=== PATIENT | male | born 1940 | race Caucasian/White ===

== ENCOUNTER → 2016-11-24 | Outpatient (CLI) | payer OTHER ==
[~2016-11-24] MED LIST: ASPI325T45 PO; CHOL1TAB46 PO; FRS/40 PO; GLIP5TAB11 PO; LOSA50TA6 PO; MAGN400T6 PO; METF1000 PO; MULT-839 PO; MULTTAB58 PO; PIOG1TAB20 PO; RIVA1TAB4 PO; SIMV20TA2 PO
[2016-11-24 13:09] LABS: BLOOD UREA NITROGEN 25 mg/dl (7-18); BUN/CREATININE RATIO 21.2 (10-20); CALCIUM 8.9 mg/dl (8.5-10.1); CARBON DIOXIDE 27 mmol/L (21-32); CHLORIDE 106 mmol/L (98-107); GLUCOSE 160 mg/dl (70-99); SODIUM 142 mmol/L (136-145)
[2016-11-24 13:14] LABS: CHOLESTEROL 137 mg/dl (0-200); HDL CHOLESTEROL 46 mg/dl; TRIGLYCERIDES 157 mg/dl (0-150); VERY LOW DENSITY LIPOPROT CALC 31 mg/dl
[2016-11-24 13:22] LABS: ESTIMATED AVERAGE GLUCOSE 128 mg/dl; HA1C FLAG Normal (Normal)
== END | disposition home or self-care (01) ==
LOC: C.LABSPEC 12:33
PROVIDERS: ATTEND Internal Medicine
DX: E78.5 Hyperlipidemia, unspecified (principal); E11.9 Type 2 diabetes mellitus without complications; I25.10 Atherosclerotic heart disease of native coronary artery without angina pectoris; I10 Essential (primary) hypertension

== ENCOUNTER → 2017-02-02 | Outpatient (CLI) | payer OTHER ==
[2017-02-02 11:21] LABS: BLOOD UREA NITROGEN 33 mg/dl (7-18); BUN/CREATININE RATIO 27.5 (10-20); CALCIUM 9.1 mg/dl (8.5-10.1); CARBON DIOXIDE 29 mmol/L (21-32); CHLORIDE 109 mmol/L (98-107); GLUCOSE 136 mg/dl (70-99); MAGNESIUM 2.2 mg/dl (1.8-2.4); POTASSIUM 3.8 mmol/L (3.5-5.1); SODIUM 144 mmol/L (136-145)
== END | disposition home or self-care (01) ==
LOC: C.LAB1850 10:05
PROVIDERS: ATTEND Internal Medicine Cardiovascular Disease
DX: E78.5 Hyperlipidemia, unspecified (principal); I10 Essential (primary) hypertension; I25.10 Atherosclerotic heart disease of native coronary artery without angina pectoris; I42.9 Cardiomyopathy, unspecified; E83.42 Hypomagnesemia; I48.92 Unspecified atrial flutter; I50.22 Chronic systolic (congestive) heart failure; I47.2 Ventricular tachycardia

== ENCOUNTER → 2017-03-25 | Outpatient (CLI) | payer OTHER ==
[2017-03-25 12:46] LABS: BASO % 0.4 %; BASO ABS # 0.02 K/uL (0-0.2); COMPLETE YES; EOS % 3.4 %; HEMATOCRIT 39.9 % (42-52); IG% 0.2 %; LYMPH % 22.3 %; LYMPH ABS # 1.13 K/uL (1.2-3.4); MEAN CELL VOLUME 91.9 fL (80-100); MEAN CORPUSCULAR HGB CONC 32.6 g/dl (32-36); MEAN PLATELET VOLUME 10.3 fL (7.4-10.4); MONO % 11.4 %; NEUT % 62.3 %; PLATELET COUNT 141 K/uL (130-400); RED BLOOD COUNT 4.34 M/uL (4.7-6.1); WHITE BLOOD COUNT 5.07 K/uL (4.8-10.8)
[2017-03-25 13:09] LABS: ALT/SGPT 22 U/L (12-78); AST/SGOT 16 U/L (15-37); BLOOD UREA NITROGEN 21 mg/dl (7-18); BUN/CREATININE RATIO 17.7 (10-20); CARBON DIOXIDE 27 mmol/L (21-32); CHLORIDE 106 mmol/L (98-107); CHOLESTEROL 151 mg/dl (0-200); GLUCOSE 156 mg/dl (70-99); POTASSIUM 3.9 mmol/L (3.5-5.1); SODIUM 143 mmol/L (136-145); TRIGLYCERIDES 197 mg/dl (0-150); VERY LOW DENSITY LIPOPROT CALC 39 mg/dl
[2017-03-25 13:13] LABS: ALKALINE PHOSPHATASE 56 U/L (45-117); CHOLESTEROL/HDL RATIO 3.4; ESTIMATED AVERAGE GLUCOSE 128 mg/dl; HA1C FLAG Normal (Normal); HDL CHOLESTEROL 44 mg/dl
== END | disposition home or self-care (01) ==
LOC: C.LABSPEC 12:14
PROVIDERS: ATTEND Internal Medicine
DX: I25.10 Atherosclerotic heart disease of native coronary artery without angina pectoris (principal); E11.65 Type 2 diabetes mellitus with hyperglycemia; E78.5 Hyperlipidemia, unspecified

== ENCOUNTER → 2017-07-13 | Outpatient (CLI) | payer OTHER ==
[2017-07-13 10:46] LABS: HEMATOCRIT 40.5 % (42-52); MEAN CELL VOLUME 91.4 fL (80-100); MEAN CORPUSCULAR HEMOGLOBIN 30.7 pg (25-34); MEAN CORPUSCULAR HGB CONC 33.6 g/dl (32-36); MEAN PLATELET VOLUME 10.3 fL (7.4-10.4); PLATELET COUNT 135 K/uL (130-400); RED BLOOD COUNT 4.43 M/uL (4.7-6.1); WHITE BLOOD COUNT 5.25 K/uL (4.8-10.8)
[2017-07-13 11:05] LABS: ALT/SGPT 21 U/L (12-78); AST/SGOT 15 U/L (15-37); BLOOD UREA NITROGEN 28 mg/dl (7-18); CARBON DIOXIDE 27 mmol/L (21-32); CHLORIDE 108 mmol/L (98-107); GLUCOSE 132 mg/dl (70-99); POTASSIUM 3.9 mmol/L (3.5-5.1); SODIUM 142 mmol/L (136-145)
== END | disposition home or self-care (01) ==
LOC: C.LAB1850 09:07
PROVIDERS: ATTEND Internal Medicine Cardiovascular Disease
DX: I10 Essential (primary) hypertension (principal); I25.10 Atherosclerotic heart disease of native coronary artery without angina pectoris; I42.9 Cardiomyopathy, unspecified; E83.42 Hypomagnesemia; I48.92 Unspecified atrial flutter; I50.22 Chronic systolic (congestive) heart failure; I47.2 Ventricular tachycardia

== ENCOUNTER → 2017-07-28 | Outpatient (CLI) | payer OTHER ==
[2017-07-28 13:06] LABS: BLOOD UREA NITROGEN 19 mg/dl (7-18); BUN/CREATININE RATIO 15.4 (10-20); CARBON DIOXIDE 22 mmol/L (21-32); CHLORIDE 110 mmol/L (98-107); CHOLESTEROL 136 mg/dl (0-200); ESTIMATED AVERAGE GLUCOSE 126 mg/dl; GLUCOSE 130 mg/dl (70-99); HA1C FLAG Normal (Normal); POTASSIUM 3.5 mmol/L (3.5-5.1); SODIUM 143 mmol/L (136-145)
[2017-07-28 13:09] LABS: CHOLESTEROL/HDL RATIO 3.2; HDL CHOLESTEROL 43 mg/dl; TRIGLYCERIDES 120 mg/dl (0-150); VERY LOW DENSITY LIPOPROT CALC 24 mg/dl
== END | disposition home or self-care (01) ==
LOC: C.LABSPEC 12:35
PROVIDERS: ATTEND Internal Medicine
DX: E78.5 Hyperlipidemia, unspecified (principal); E11.9 Type 2 diabetes mellitus without complications; I10 Essential (primary) hypertension; I25.10 Atherosclerotic heart disease of native coronary artery without angina pectoris

== ENCOUNTER → 2017-09-30 | Outpatient (CLI) | payer OTHER | END | disposition home or self-care (01) | LOC: C.LABSPEC 15:34 | PROVIDERS: ATTEND Internal Medicine | DX: Z12.11 Encounter for screening for malignant neoplasm of colon (principal) ==

== ENCOUNTER → 2017-10-05 | Outpatient (CLI) | payer OTHER ==
[2017-10-05 10:04] LABS: ALT/SGPT 24 U/L (12-78); AST/SGOT 15 U/L (15-37); BLOOD UREA NITROGEN 33 mg/dl (7-18); BUN/CREATININE RATIO 25.9 (10-20); CALCIUM 9.3 mg/dl (8.5-10.1); CARBON DIOXIDE 27 mmol/L (21-32); CHLORIDE 106 mmol/L (98-107); CREATININE 1.27 mg/dl (0.60-1.40); GLUCOSE 130 mg/dl (70-99); POTASSIUM 4.2 mmol/L (3.5-5.1); SODIUM 141 mmol/L (136-145)
== END | disposition home or self-care (01) ==
LOC: C.LAB1850 08:30
PROVIDERS: ATTEND Internal Medicine Cardiovascular Disease
DX: E78.5 Hyperlipidemia, unspecified (principal); I25.10 Atherosclerotic heart disease of native coronary artery without angina pectoris; I47.2 Ventricular tachycardia; I50.22 Chronic systolic (congestive) heart failure; I42.9 Cardiomyopathy, unspecified; I11.9 Hypertensive heart disease without heart failure

== ENCOUNTER → 2017-11-26 | Outpatient (CLI) | payer OTHER ==
[2017-11-26 13:30] LABS: BLOOD UREA NITROGEN 26 mg/dl (7-18); CALCIUM 9.5 mg/dl (8.5-10.1); CARBON DIOXIDE 25 mmol/L (21-32); CHOLESTEROL 114 mg/dl (0-200); CREATININE 1.35 mg/dl (0.60-1.40); GLUCOSE 109 mg/dl (70-99); LDL CHOLESTEROL (DIRECT) 63 mg/dl; POTASSIUM 4.2 mmol/L (3.5-5.1); SODIUM 137 mmol/L (136-145)
[2017-11-26 13:44] LABS: HEMOGLOBIN A1C 5.9 % (4.5-5.6)
== END | disposition home or self-care (01) ==
LOC: C.LABSPEC 12:34
PROVIDERS: ATTEND Internal Medicine
DX: E78.5 Hyperlipidemia, unspecified (principal); E11.9 Type 2 diabetes mellitus without complications; I10 Essential (primary) hypertension

== ENCOUNTER 2024-01-18 05:10 | Inpatient (IN) ==
--- NOTE | 2024-01-18 05:36 | Emergency Department Note ---
Impression & Plan Pneumonia, Hypomagnesemia Admit to the [facility] ED Provider Note NAME: KAYLA DONG AGE: 83 SEX: Male INFORMANT: Patient ED PROVIDER(S): Bernie Mc DO CHIEF COMPLAINT: Productive cough x 3 weeks PLAN: Disposition: Admit to the [facility] MEDICAL DECISION MAKING: This is an 83-year-old male patient who presents to the emergency department with a productive cough and fever. Patient states he has a sore throat. He has been up all night coughing so much that his gut hurts. Patient is febrile on exam and is coughing up a yellow/white sputum. Chest x- ray shows evidence of a left-sided pneumonia. Patient was treated with IV Levaquin. Septic protocol was performed. Lactic acid and procalcitonin were normal. Patient's fever was treated with Tylenol. Patient was noted to have a low magnesium and he began to receive IV magnesium replacement. Other laboratory studies revealed no leukocytosis. Troponin was negative. Bio fire testing was negative. The patient was slightly anemic with a hemoglobin of 12.3. BNP was mildly elevated at 303. I discussed the case with the [facility] and they will evaluate for further inpatient care Care/management discussed with: sourcing manager and [facility] Triage Nursing notes: Reviewed and agree with them. Vital Signs: reviewed and remarkable for fever Chronic Medical/Social Conditions affecting care: Previous triple-vessel bypass; pacemaker placement Differential Diagnosis: Pneumonia, sepsis, bronchitis, viral URI Diagnostics, independently interpreted by me: ECG: Ventricular paced rhythm at 73 Cardiac Monitoring: Paced rhythm at 73 Imaging studies: Portable chest x-ray: As per radiology HPI: 83 year old Male arrives for evaluation of productive cough and sore throat. Patient describes having significant cough and upper respiratory symptoms over the past weeks. The patient describes coughing so much at night that he was unable to sleep. He has a sore throat and fever. PAST MEDICAL HISTORY: See Below, PAST SURGICAL HISTORY: See Below, SOCIAL HISTORY: See Below, HOME MEDICATIONS: See list ALLERGIES: Penicillin VITALS: See Below PHYSICAL EXAMINATION: HEENT: Head - normocephalic and atraumatic. Pupils are equal, round, and reactive to light. Extraocular eye muscles are intact, and sclera are anicteric. Nose - moist nasal mucosa without discharge. Mouth - moist buccal mucosa. Oropharynx is nonerythematous and there is no tonsillar exudate or edema noted. Neck: Supple; no JVD or cervical lymphadenopathy Heart: Regular rate and rhythm. There is a normal S1 and S2 with no murmurs, clicks, or gallops appreciated. Lungs: Diminished breath sounds in all lung howard Abdomen: Soft, completely nontender, nondistended, with good bowel sounds. There are no palpable pulsatile masses or hepatosplenomegaly. There is no guarding, rigidity, or rebound noted. Extremities: No evidence of cyanosis, clubbing, or edema. There are easily palpable peripheral pulses. Skin: warm and dry with good turgor and no rashes. ED treatment: panel monitor, oral Tylenol, IV Levaquin IV magnesium Emergency department course: The patient was evaluated in room A-10. A complete history and physical was performed. A septic protocol was performed. An order was placed for continuous cardiac monitoring. Twelve-lead EKG was obtained. Portable chest x-ray was performed. The patient was given a dose of Tylenol. Patient was treated with a dose of IV Levaquin. Patient was noted to have a low magnesium level and was started on IV magnesium replacement. Case was discussed with the [facility] Hospitalist. 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) Obstructive sleep apnea Severe obesity (BMI >= 40) Chronic systolic CHF (congestive heart failure) Cardiomyopathy Dyslipidemia Paroxysmal atrial flutter NSVT (nonsustained ventricular tachycardia) CAD (coronary artery disease) Cardiac pacemaker Second degree atrioventricular block HTN (hypertension) Surgical History History of permanent cardiac pacemaker placement S/P CABG x 3 Family History Mother Breast cancer Brother Diabetes Brother Diabetes Brother Diabetes Father Heart disease Myocardial infarction Aunt Diabetes Son Myocardial infarction Diabetes Denies family history of Ovarian cancer Prostate cancer Colorectal cancer Social History Smoking Status: Former smoker Tobacco Type: Smokeless Tobacco (Dip or Chew) Age Started Using Tobacco: 15; Age Quit Using Tobacco: 21; Second Hand Exposure: No; Do You Dip or Chew Tobacco: Yes; Hx Alcohol Use: Yes Alcohol type: beer Hx Substance Use: No Preferred Language: Filipino Communication Ability: Effective Production Cloth Cutter Required: No Beliefs That Will Affect Care: None marital status: / Current Living Situation: Family Current Living Situation Comment: Home with brother current occupational status: retired Feels Safe at Home: Yes Childhood Exposure to Second-Hand Smoke: Yes Dental Care, Regularly: No Physical Activity Frequency: Does not Exercise Seatbelt Use: always Sunscreen Use: No Assistive Devices: CPAP and Glasses Allergies Allergies Allergy/AdvReac Type Severity Reaction Status Date / Time Penicillins Allergy Intermediate HIVES Verified 12/23/23 08:43 Home Meds Home Medications Medication Instructions Recorded Confirmed cholecalciferol (vitamin D3) 125 5,000 units PO DAILY 08/08/19 01/18/24 mcg (5,000 unit) capsule magnesium oxide 400 mg PO DAILY #30 caps 08/08/19 01/18/24 multivitamin [Multivitamins FC] 1 tab PO DAILY 08/08/19 01/18/24 vitamins A,C,N-jjps-krifop See Rx Instructions .Route .COMPLEX 08/08/19 01/18/24 [Vision Formula (R-[id number])] zinc acetate 50 mg (zinc) capsule 50 mg PO DAILY 12/08/22 01/18/24 (Galzin) mecobalamin (vitamin B12) 1,000 1,000 mcg sublingual DAILY 12/07/23 01/18/24 mcg disintegrating tablet,sublingual Previous Rx's Medication Instructions Recorded apixaban 2.5 mg tablet (Eliquis) 2.5 mg PO BID #180 tabs 05/21/23 furosemide 40 mg tablet 40 mg PO QAM #90 tabs 05/27/23 metformin 500 mg tablet 500 mg PO BID #180 tabs 10/01/23 dulaglutide 1.5 mg/0.5 mL 1.5 mg (0.5 mL) subcut WK #6 mL 10/19/23 subcutaneous pen injector insulin glargine 100 unit/mL (3 10 - 15 unit (0.1 - 0.15 mL) 10/19/23 mL) subcutaneous pen (Lantus subcut BID #15 mL Solostar U-100 Insulin) carvedilol 25 mg tablet See Rx Instructions .Route 10/22/23 .COMPLEX #180 tabs losartan 100 mg tablet See Rx Instructions .Route 10/22/23 .COMPLEX #90 tabs rosuvastatin 20 mg tablet See Rx Instructions .Route 10/22/23 .COMPLEX #90 tabs Results & Data (ED) Vital Signs Vital Signs - 24 hr 01/18/24 05:22 01/18/24 05:22 01/18/24 05:24 Temperature 37.8 C H Temperature Source Oral Pulse Rate 89 67 68 Pulse Rate from SpO2 Sensor 67 Respiratory Rate 13 13 Blood Pressure Blood Pressure Mean Pulse Oximetry 91 91 Oxygen Delivery Method Room Air Sepsis Recent Fever Within 48 Hours Yes Sepsis New/Unexplained Change in Mental Status No Sepsis Action Taken by Nursing Physician Notified 01/18/24 05:30 01/18/24 05:40 01/18/24 05:40 Temperature Temperature Source Pulse Rate 78 70 70 Pulse Rate from SpO2 Sensor 83 69 Respiratory Rate 19 17 17 Blood Pressure 121/49 L Blood Pressure Mean 58 Pulse Oximetry 94 92 92 Oxygen Delivery Method Sepsis Recent Fever Within 48 Hours Sepsis New/Unexplained Change in Mental Status Sepsis Action Taken by Nursing 01/18/24 05:50 01/18/24 05:56 01/18/24 05:56 Temperature Temperature Source Pulse Rate 72 75 75 Pulse Rate from SpO2 Sensor 69 71 Respiratory Rate 24 23 23 Blood Pressure 136/47 L Blood Pressure Mean 77 Pulse Oximetry 92 90 90 Oxygen Delivery Method Sepsis Recent Fever Within 48 Hours Sepsis New/Unexplained Change in Mental Status Sepsis Action Taken by Nursing 01/18/24 06:00 01/18/24 06:00 01/18/24 06:10 Temperature Temperature Source Pulse Rate 74 74 67 Pulse Rate from SpO2 Sensor 74 65 Respiratory Rate 23 23 26 H Blood Pressure 129/53 L Blood Pressure Mean 83 Pulse Oximetry 91 91 91 Oxygen Delivery Method Sepsis Recent Fever Within 48 Hours Sepsis New/Unexplained Change in Mental Status Sepsis Action Taken by Nursing 01/18/24 06:20 01/18/24 06:20 01/18/24 06:30 Temperature Temperature Source Pulse Rate 74 74 74 Pulse Rate from SpO2 Sensor 76 75 Respiratory Rate 17 17 32 H Blood Pressure 112/56 L Blood Pressure Mean 67 Pulse Oximetry 94 94 95 Oxygen Delivery Method Sepsis Recent Fever Within 48 Hours Sepsis New/Unexplained Change in Mental Status Sepsis Action Taken by Nursing 01/18/24 06:30 01/18/24 06:40 01/18/24 06:45 Temperature Temperature Source Pulse Rate 71 71 73 Pulse Rate from SpO2 Sensor 71 71 Respiratory Rate 23 23 27 H Blood Pressure 100/64 Blood Pressure Mean 84 Pulse Oximetry 92 92 90 Oxygen Delivery Method Room Air Sepsis Recent Fever Within 48 Hours Sepsis New/Unexplained Change in Mental Status Sepsis Action Taken by Nursing 01/18/24 06:45 01/18/24 06:50 Temperature Temperature Source Pulse Rate 73 73 Pulse Rate from SpO2 Sensor 73 Respiratory Rate 27 H 24 Blood Pressure 121/63 Blood Pressure Mean 83 Pulse Oximetry 90 90 Oxygen Delivery Method Sepsis Recent Fever Within 48 Hours Sepsis New/Unexplained Change in Mental Status Sepsis Action Taken by Nursing Laboratory Data 01/19/24 05:55 01/19/24 05:55 Lab Results 01/18/24 01/18/24 01/18/24 Range/Units 05:15 05:45 06:18 WBC 5.64 (4.8-10.8) K/ul RBC 4.12 L (4.70-6.10) M/uL Hgb 12.3 L (14.0-18.0) g/dl Hct 36.7 L (42.0-52.0) % MCV 89.1 (80.0-100.0) fL MCH 29.9 (25.0-34.0) pg MCHC 33.5 (32.0-36.0) g/dL RDW Std Deviation 44.8 (36.4-46.3) fL RDW Coeff of Trinity 14.0 (11.5-14.5) % Plt Count 108 L (130-400) K/uL MPV 11.0 (9.4-12.4) fL Immature Gran % (Auto) 0.2 % Neut % (Auto) 80.7 % Lymph % (Auto) 10.6 % [place] % (Auto) 7.4 % Eos % (Auto) 0.9 % Baso % (Auto) 0.2 % Neut # (Auto) 4.55 (1.40-6.50) K/uL Lymph # (Auto) 0.60 L (1.20-3.40) K/uL Marathon # (Auto) 0.42 (0.11-0.59) K/uL Eos # (Auto) 0.05 (0.00-0.50) K/uL Baso # (Auto) 0.01 (0.00-0.20) K/uL Immature Gran # (Auto) 0.01 (0.01-0.20) K/uL Sodium 137 (136-145) mmol/L Potassium 4.0 (3.5-5.1) mmol/L Chloride 104 (98-107) mmol/L Carbon Dioxide 24 (21-32) mmol/L Anion Gap 9 (3-11) BUN 29 H (6-23) mg/dl Creatinine 1.78 H (0.6-1.4) mg/dl Est Cr Clr Drug Dosing Not Reportable Est GFR ( Amer) 40.3 ml/min Est GFR (Non-Af Amer) 34.8 ml/min BUN/Creatinine Ratio 16.3 (10-20) Glucose 130 H (70-99(Fasting)) mg/dl Lactate 1.6 (0.4-2.0) mmol/L Calcium 8.5 L (8.6-10.3) mg/dl Magnesium 1.4 L (1.7-2.4) mg/dl Total Bilirubin 1.1 H (0.2-1.0) mg/dl Direct Bilirubin 0.1 (0-0.2) mg/dl AST 18 (13-39) U/L ALT 15 (7-52) U/L Alkaline Phosphatase 52 (34-104) U/L Troponin I High Sens 17.5 (0-20) pg/ml B-Natriuretic Peptide 303 H (0-100) pg/ml Total Protein 6.8 (6.0-8.3) gm/dl Albumin 3.9 (3.4-5.0) gm/dl Procalcitonin 0.41 (0-0.5) ng/ml Adenovirus (PCR) Not Detected (NotDetected) B. pertussis DNA (PCR) Not Detected (NotDetected) B.parapertussis DNA PCR Not Detected (NotDetected) C. pneumoniae DNA (PCR) Not Detected (NotDetected) Coronavirus OC43 (PCR) Not Detected (NotDetected) Coronavirus HKU1 (PCR) Not Detected (NotDetected) Coronavirus 229E (PCR) Not Detected (NotDetected) SARS-CoV-2 (PCR) Not Detected (NotDetected) Coronavirus NL63 (PCR) Not Detected (NotDetected) Human Metapneumovir PCR Not Detected (NotDetected) Influenza Type A (PCR) Not Detected (NotDetected) Influenza Type B (PCR) Not Detected (NotDetected) M. pneumoniae (PCR) Not Detected (NotDetected) Parainfluenza 1 (PCR) Not Detected (NotDetected) Parainfluenza 2 (PCR) Not Detected (NotDetected) Parainfluenza 3 (PCR) Not Detected (NotDetected) Parainfluenza 4 (PCR) Not Detected (NotDetected) RSV (PCR) Not Detected (NotDetected) Entero/Rhino (PCR) Not Detected (NotDetected) Administered Medications Albuterol (Albut/Ipratrop 3mg/0.5mg Neb 3 Ml Vial) 3 ml NEB Q4R DESIRAE; Protocol Stop: 02/17/24 18:59 Last Admin: 01/19/24 15:36 Dose: 3 ml Documented By: Admin: 01/19/24 11:05 Dose: 3 ml Documented By: Admin: 01/19/24 07:20 Dose: 3 ml Documented By: Admin: 01/19/24 02:59 Dose: 3 ml Documented By: Admin: 01/18/24 22:42 Dose: 3 ml Documented By: Admin: 01/18/24 20:17 Dose: 3 ml Documented By: ADAMR Apixaban (Apixaban 2.5 Mg Tab) 2.5 mg PO BID REPLACED BY [facility] Stop: 02/17/24 20:59 Last Admin: 01/19/24 08:37 Dose: 2.5 mg Documented By: Admin: 01/18/24 20:11 Dose: 2.5 mg Documented By: DIONICIO Carvedilol (Carvedilol 12.5 Mg Tab) 12.5 mg PO BIDM REPLACED BY [facility] Stop: 02/17/24 16:59 Last Admin: 01/19/24 08:21 Dose: Not Given Documented By: Admin: 01/18/24 20:11 Dose: 12.5 mg Documented By: DIONICIO Insulin Aspart (Insulin Aspart Per Unit Charge) 0 units SC ACHS REPLACED BY [facility] Stop: 02/17/24 11:29 Last Admin: 01/19/24 12:58 Dose: 1 units Documented By: AMINTA Co-signed By: KELLY Admin: 01/19/24 08:20 Dose: Not Given Documented By: Admin: 01/18/24 20:41 Dose: Not Given Documented By: DIONICIO Co-signed By: UBALDO Admin: 01/18/24 18:12 Dose: 1 units Documented By: AMINTA Co-signed By: KELLY Admin: 01/18/24 13:06 Dose: 1 units Documented By: CHARMAINE Co-signed By: IQRA Insulin Glargine (Lantus Per Unit Charge) 15 units SQ BID REPLACED BY [facility] Stop: 02/17/24 09:59 Last Admin: 01/19/24 08:36 Dose: 15 units Documented By: AMINTA Co-signed By: [facility] Admin: 01/18/24 20:40 Dose: 15 units Documented By: DIONICIO Co-signed By: UBALDO Admin: 01/18/24 12:17 Dose: 15 units Documented By: CHARMAINE Co-signed By: IQRA Losartan Potassium (Losartan Potassium 50 Mg Tab) 50 mg PO [facility] Stop: 02/18/24 08:59 Last Admin: 01/19/24 08:37 Dose: 50 mg Documented By: AMINTA Rosuvastatin Calcium (Rosuvastatin Calcium 20 Mg Tab) 20 mg PO [facility] Stop: 02/18/24 08:59 Last Admin: 01/19/24 08:36 Dose: 20 mg Documented By: AMINTA Discontinued Medications Acetaminophen (Acetaminophen 500 Mg Tab) 1,000 mg PO NOW STA Stop: 01/18/24 06:44 Last Admin: 01/18/24 06:47 Dose: 1,000 mg Documented By: LEZBIETA Magnesium Sulfate/Dextrose (Magnesium Sulfate / D5w) 1 gm in 100 mls @ 100 mls/hr IV NOW STA Stop: 01/18/24 06:59 Last Infusion: 01/18/24 07:00 Dose: Infused Documented By: Admin: 01/18/24 06:26 Dose: 100 mls/hr Documented By: CESARIO Levofloxacin/Dextrose (Levaquin/D5w) 750 mg in 150 mls @ 100 mls/hr IV NOW STA Stop: 01/18/24 07:33 Last Infusion: 01/18/24 08:21 Dose: Infused Documented By: Admin: 01/18/24 06:26 Dose: 100 mls/hr Documented By: CESARIO Sodium Chloride (Nss) 500 mls @ 999 mls/hr IV .Q31M ONE Stop: 01/18/24 07:13 Last Infusion: 01/18/24 07:14 Dose: Infused Documented By: Admin: 01/18/24 06:47 Dose: 999 mls/hr Documented By: ELZBIETA Magnesium Sulfate/Dextrose (Magnesium Sulfate / D5w) 1 gm in 100 mls @ 50 mls/hr IV Q2H DESIRAE Stop: 01/18/24 15:21 Last Infusion: 01/18/24 18:06 Dose: Infused Documented By: Admin: 01/18/24 15:46 Dose: 50 mls/hr Documented By: Infusion: 01/18/24 14:43 Dose: Infused Documented By: Admin: 01/18/24 12:21 Dose: 50 mls/hr Documented By: Infusion: 01/18/24 11:57 Dose: Infused Documented By: Admin: 01/18/24 09:57 Dose: 50 mls/hr Documented By: JENIFFER Imaging Data Radiologist's Impression: Chest X-Ray 01/18/24 05:22 SINGLE VIEW CHEST CLINICAL HISTORY: Sepsis FINDINGS: An AP, portable, upright chest radiograph is compared to study dated 02/17/2019. The patient is status post midline sternotomy. A 2-lead cardiac pacemaker is unchanged in position. The heart is enlarged noting atherosclerotic calcification of the thoracic aorta. The pulmonary vasculature is noncongested. Airspace consolidation is seen in the left mid to lower lung. There is bibasilar atelectasis. No large pleural effusion or pneumothorax is seen. The fractures are osteopenic. The bony thorax is grossly intact. Arthritic change is noted in the shoulders. IMPRESSION: 1. Cardiomegaly and cardiac pacemaker without radiographic evidence of congestive failure. 2. Airspace consolidation is seen in the left mid to lower lung. Correlate clinically for evidence of pneumonia/aspiration pneumonitis. Radiographic follow-up to resolution is recommended. ACT 112: Negative or not required by law. Electronically signed by: Jose Lyles M.D. 01/18/2024 7:25 AM Discharge Plan Visit Data Chief Complaint: Flu Like Symptoms Stated Complaint: FLU-LIKE SYMPTOMS COUGH, SORE RIBS ED Provider: Bernie Mc Discharge Problem: Pneumonia, Hypomagnesemia Patient Disposition: Admitted As Inpatient Discharge Instructions Interventions: ED Discharge Assessment Last Done: 01/18/24 16:12 Discharge Problem: Pneumonia Qualifiers: Pneumonia type: due to unspecified organism Laterality: left Lung location: l ower lobe of lung Qualified Code(s): J18.9 - Pneumonia, unspecified organism
[2024-01-18 05:44] LABS: Basophils # (auto) 0.01 K/uL (0.00-0.20); Basophils % (auto) 0.2 %; Eosinophils # (auto) 0.05 K/uL (0.00-0.50); Eosinophils % (auto) 0.9 %; Hematocrit (blood only) 36.7 % (42.0-52.0); Hemoglobin 12.3 g/dl (14.0-18.0); Immature Granulocytes # (auto) 0.01 K/uL (0.01-0.20); Immature Granulocytes % (auto) 0.2 %; Lymphocytes % (auto) 10.6 %; Mean Corpuscular Hemoglobin 29.9 pg (25.0-34.0); Mean Corpuscular Hgb Conc 33.5 g/dL (32.0-36.0); Mean Corpuscular Volume 89.1 fL (80.0-100.0); Monocytes # (auto) 0.42 K/uL (0.11-0.59); Monocytes % (auto) 7.4 %; Neutrophils # (auto) 4.55 K/uL (1.40-6.50); Neutrophils % (auto) 80.7 %; Platelet Count 108 K/uL (130-400); RDW Standard Deviation 44.8 fL (36.4-46.3); Red Blood Count 4.12 M/uL (4.70-6.10); White Blood Count 5.64 K/ul (4.8-10.8)
[2024-01-18 05:53] LABS: Alanine Aminotransferase 15 U/L (7-52); Albumin Level 3.9 gm/dl (3.4-5.0); Alkaline Phosphatase 52 U/L (34-104); Anion Gap 9 (3-11); Aspartate Aminotransferase 18 U/L (13-39); BUN Creatinine Ratio 16.3 (10-20); Bilirubin Direct 0.1 mg/dl (0-0.2); Bilirubin,Total 1.1 mg/dl (0.2-1.0); Blood Urea Nitrogen 29 mg/dl (6-23); Calcium 8.5 mg/dl (8.6-10.3); Carbon Dioxide 24 mmol/L (21-32); Chloride 104 mmol/L (98-107); Est GFR (African American) 40.3 ml/min; Est GFR (Non-African American) 34.8 ml/min; Glucose 130 mg/dl (70-99(Fasting)); Magnesium 1.4 mg/dl (1.7-2.4); Sodium 137 mmol/L (136-145); Total Protein 6.8 gm/dl (6.0-8.3)
[2024-01-18 05:59] LABS: Troponin I High Sensitivity 17.5 pg/ml (0-20)
[2024-01-18] MEDS: MAGNESIUM SULFATE / D5W 1 GM/100 ML BAG IV STA (06:26)
[2024-01-18] MEDS: levoFLOXacin/D5W 750 MG/150 ML BAG IV STA (06:26)
[2024-01-18] MEDS: SODIUM CHLORIDE 0.9% 500 ML IV ONE (06:47)
[2024-01-18] MEDS: ACETAMINOPHEN 500 MG TAB PO STA (06:47)
[2024-01-18 07:18] LABS: Adenovirus PCR Not Detected (NotDetected); Bordetella parapertussis PCR Not Detected (NotDetected); Bordetella pertussis PCR Not Detected (NotDetected); Chlamydia pneumoniae PCR Not Detected (NotDetected); Coronavirus 229E PCR Not Detected (NotDetected); Coronavirus CoV-2 (COVID19)PCR Not Detected (NotDetected); Coronavirus HKU1 PCR Not Detected (NotDetected); Coronavirus NL63 PCR Not Detected (NotDetected); Coronavirus OC43PCR Not Detected (NotDetected); Human Metapneumovirus PCR Not Detected (NotDetected); Influenza A PCR Not Detected (NotDetected); Influenza B PCR Not Detected (NotDetected); Mycoplasma pneumoniae PCR Not Detected (NotDetected); Parainfluenza Virus 1 PCR Not Detected (NotDetected); Parainfluenza Virus 2 PCR Not Detected (NotDetected); Parainfluenza Virus 3 PCR Not Detected (NotDetected); Parainfluenza Virus 4 PCR Not Detected (NotDetected); Respiratory Syncytial VirusPCR Not Detected (NotDetected); Rhinovirus/Enterovirus PCR Not Detected (NotDetected)
--- NOTE | 2024-01-18 07:27 | XRay Report ---
SINGLE VIEW CHEST CLINICAL HISTORY: Sepsis FINDINGS: An AP, portable, upright chest radiograph is compared to study dated 02/17/2019. The patient is status post midline sternotomy. A 2-lead cardiac pacemaker is unchanged in position. The heart is enlarged noting atherosclerotic calcification of the thoracic aorta. The pulmonary vasculature is no ncongested. Airspace consolidation is seen in the left mid to lower lung. There is bibasilar atelecta sis. No large pleural effusion or pneumothorax is seen. The fractures are osteopenic. The bony thorax is grossly intact. Arthritic change is noted in the shoulders. IMPRESSION: 1. Cardiomegaly and cardiac pacemaker without radiographic evidence of congestive failure. 2. Airspace consolidation is seen in the left mid to lower lung. Correlate clinically for evidence of pneumonia/aspiration pneumonitis. Radiographic follow-up to resolution is recommended. ACT 112: Negative or not required by law. Electronically signed by: Jose Lyles M.D. 01/18/2024 7:25 AM
[2024-01-18] MEDS ORDERED: ACETAMINOPHEN 325 MG TAB PO PRN (08:14)
[2024-01-18] MEDS ORDERED: ONDANSETRON INJ 2 MG/ML 2 ML VIAL IV PRN (08:14)
--- NOTE | 2024-01-18 09:03 | Electrocardiogram Report ---
Test Reason : Blood Pressure : / mmHG Vent. Rate : 073 BPM Atrial Rate : 062 BPM P-R Int : 000 ms QRS Dur : 170 ms QT Int : 452 ms P-R-T Axes : 000 -75 098 degrees QTc Int : 497 ms Ventricular-paced rhythm with occasional Premature ventricular complexes Abnormal ECG When compared with ECG of 01-MAY-2015 16:01, Premature ventricular complexes are now Present Vent. rate has increased BY 13 BPM Confirmed by Sancho Tinajero ([id number]) on 01/18/2024 9:03:22 AM Referred By: REFERRED SELF Confirmed By:Miky Tinajero
[2024-01-18] MEDS: MAGNESIUM SULFATE / D5W 1 GM/100 ML BAG IV SCH (09:57)
[2024-01-18] MEDS ORDERED: GLUCOSE 40% GEL 15 GM TUBE PO PRN (09:58)
[2024-01-18] MEDS ORDERED: GLUCOSE 10 TAB/TUBE PO PRN (09:58)
[2024-01-18] MEDS ORDERED: GLUCAGON FOR INJ 1 MG VIAL SQ PRN (09:58)
[2024-01-18] MEDS ORDERED: DEXTROSE 50% 50 ML SYRINGE IV PRN (09:58)
[2024-01-18] MEDS ORDERED: CARBOHYDRATES FOR HYPOGLYCEMIA PO PRN (09:58)
--- NOTE | 2024-01-18 10:07 | History & Physical Report ---
Date of Service January 18, 2024 Assessment & Plan (1) Community acquired pneumonia: Plan: Patient presented with productive cough and fever Chest x-ray showed left-sided pneumonia No orthopnea, PND, worsened leg swelling compared to baseline to suggest CHF exacerbation Got IV Levaquin in the emergency room. Will continue as he is starting to feel better in response Ordered sputum cultures Blood cultures pending Not hypoxic Not septic Ordered DuoNebs Monitor for improvement clinically (2) Heart failure with mid-range ejection fraction: Plan: Patient does not have any orthopnea or PND or leg swelling that is worse than usual even though BNP is slightly elevated in the 300s range Patient has a history of cardiomyopathy and systolic CHF with an EF of 40% Continue Lasix 40 mg daily starting tomorrow 01/18 Continue Coreg, losartan Home medications will need to be verified and doses of medications may need to be adjusted accordingly (3) Type 2 diabetes mellitus with obesity: Plan: Continue long-acting insulin 15 units twice daily Ordered sliding scale insulin (4) Stage 3b chronic kidney disease (CKD): Plan: Monitor daily BMP Avoid nephrotoxic medication Creatinine at baseline (5) Obstructive sleep apnea: Plan: Ordered CPAP (6) Chronic systolic CHF (congestive heart failure): Plan: No acute decompensation at this time clinically Got IV fluid in the emergency room Will not hydrate further and watch for volume overload Will resume Lasix 40 mg starting tomorrow. Continue Coreg, losartan, Lasix. Medications and the doses will need to be verified (7) Cardiomyopathy: Plan: Please see problem #6 (8) Dyslipidemia: Plan: Continue rosuvastatin (9) NSVT (nonsustained ventricular tachycardia): Plan: Continue Coreg (10) CAD (coronary artery disease): Plan: Continue Coreg, ARB, statin (11) Atrial fibrillation: Plan: Not an active issue at this time Continue Eliquis and Coreg (12) Hypomagnesemia: Plan: Magnesium level was low at 1.5 Patient had 1 g of magnesium replacement in the emergency room. Ordered a few more replacements Trend Plan CODE STATUS: DNR/DNI DVT prophylaxis: On Eliquis Admission and Anticipated Discharge Date Admission Date: January 18, 2024 History of Present Illness Chief Complaint: Cough over the last few weeks, getting worse over the past 5 days. Fever this morning. Primary Care Provider: Suzi Aragon MD This is an 83-year-old gentleman who presented to the hospital with the above chief complaint. He stated that his symptoms started 2 weeks ago, got better initially but over the last 5 days, his cough got worse. He has been coughing so much that his belly hurts. Last night, he was not able to sleep at all. This morning he felt unwell and weak. He has been coughing up yellow and white sputum. His brother called 911 and brought him to the emergency room. In the ER, he was noted to have a fever. Chest x-ray showed a left-sided pneumonia. He is thus being admitted with a diagnosis of pneumonia. Magnesium was low at 1.4. Bio fire was negative. He was started on Levaquin and was given IV fluid in the emergency room. The patient says that he is starting to feel better overall. Patient denied any orthopnea, PND, leg swelling that is worse than usual. Past medical history 1. 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 Chronic systolic congestive heart failure with an ejection fraction of 40% 3. 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 Paroxysmal atrial fibrillation, on Eliquis 5. Coronary artery disease status post CABG 6. Benign essential hypertension 7. Hyperlipidemia 8. Paroxysmal nonsustained V. tach 9. 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 Insulin-dependent diabetes mellitus type 2, uncontrolled, complicated by diabetic nephropathy 11. Obstructive sleep apnea Allergies Allergy/AdvReac Type Severity Reaction Status Date / Time Penicillins Allergy Intermediate HIVES Verified 12/23/23 08:43 Home Medications Medication Instructions Recorded Confirmed Type cholecalciferol (vitamin D3) 125 5,000 units PO DAILY 08/08/19 01/18/24 History mcg (5,000 unit) capsule magnesium oxide 400 mg PO DAILY #30 caps 08/08/19 01/18/24 History multivitamin [Multivitamins FC] 1 tab PO DAILY 08/08/19 01/18/24 History vitamins A,C,H-lojb-ekpkzf See Rx Instructions .Route .COMPLEX 08/08/19 01/18/24 History [Vision Formula (S-R-S-Zn-prakash)] zinc acetate 50 mg (zinc) capsule 50 mg PO DAILY 12/08/22 01/18/24 History (Galzin) apixaban 2.5 mg tablet (Eliquis) 2.5 mg PO BID #180 tabs 05/21/23 01/18/24 Rx furosemide 40 mg tablet 40 mg PO QAM #90 tabs 05/27/23 01/18/24 Rx metformin 500 mg tablet 500 mg PO BID #180 tabs 10/01/23 01/18/24 Rx dulaglutide 1.5 mg/0.5 mL 1.5 mg (0.5 mL) subcut WK #6 mL 10/19/23 01/18/24 Rx subcutaneous pen injector insulin glargine 100 unit/mL (3 10 - 15 unit (0.1 - 0.15 mL) 10/19/23 01/18/24 Rx mL) subcutaneous pen (Lantus subcut BID #15 mL Solostar U-100 Insulin) carvedilol 25 mg tablet See Rx Instructions .Route 10/22/23 01/18/24 Rx .COMPLEX #180 tabs losartan 100 mg tablet See Rx Instructions .Route 10/22/23 01/18/24 Rx .COMPLEX #90 tabs rosuvastatin 20 mg tablet See Rx Instructions .Route 10/22/23 01/18/24 Rx .COMPLEX #90 tabs mecobalamin (vitamin B12) 1,000 1,000 mcg sublingual DAILY 12/07/23 01/18/24 History mcg disintegrating tablet,sublingual 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) Obstructive sleep apnea Severe obesity (BMI >= 40) Chronic systolic CHF (congestive heart failure) Cardiomyopathy Dyslipidemia Paroxysmal atrial flutter NSVT (nonsustained ventricular tachycardia) CAD (coronary artery disease) Cardiac pacemaker Second degree atrioventricular block HTN (hypertension) Surgical History History of permanent cardiac pacemaker placement S/P CABG x 3 Family History Mother Breast cancer Brother Diabetes Brother Diabetes Brother Diabetes Father Heart disease Myocardial infarction Aunt Diabetes Son Myocardial infarction Diabetes Denies family history of Ovarian cancer Prostate cancer Colorectal cancer Social History Smoking Status: Never smoker Age Started Using Tobacco: 15; Age Quit Using Tobacco: 21; Second Hand Exposure: No; Do You Dip or Chew Tobacco: Yes (Started at age 23); Hx Alcohol Use: Yes (1 beer daily) Alcohol type: beer Hx Substance Use: No Preferred Language: [place] Communication Ability: Effective marital status: / current occupational status: retired Feels Safe at Home: Yes Childhood Exposure to Second-Hand Smoke: Yes Dental Care, Regularly: No Physical Activity Frequency: Does not Exercise Seatbelt Use: always Sunscreen Use: No Review of Systems Review of Systems: All systems reviewed & are unremarkable except as noted in Subjective Physical Exam Physical Exam: General appearance: Awake, conversant, able to answer questions appropriately. AOx3. Pupils: Equally reactive to light and accommodation Neck: No masses, no thyromegaly Respiration: Left lower lung crackles. Normal effort Cardiovascular: S1-S2/regular rate and rhythm. No murmur, rubs or gallop. No edema. Abdomen: Soft, nontender, nondistended. No hepatosplenomegaly Musculoskeletal: No clubbing, no cyanosis, normal range of motion Skin: No rashes, no nodules Neuro exam: Cranial nerves intact, sensation grossly intact Psychiatric: Patient has good judgment and insight. AOx3. Mood and affect appear normal Lymphatics: No cervical or axillary lymphadenopathy noted Results & Data Results & Data Vital Signs (Past 12 Hours) Vital Signs Temp Pulse Resp BP Pulse Ox O2 Del Method 01/18/24 09:13 80 01/18/24 08:00 64 23 115/55 L 92 Room Air 01/18/24 07:45 79 24 129/62 95 Room Air 01/18/24 07:15 68 17 109/63 91 Room Air 01/18/24 07:00 66 21 102/57 L 90 Room Air 01/18/24 06:50 73 24 90 01/18/24 06:45 73 27 H 121/63 90 01/18/24 06:45 73 27 H 90 01/18/24 06:40 71 23 92 01/18/24 06:30 71 23 100/64 92 Room Air 01/18/24 06:30 74 32 H 95 01/18/24 06:20 74 17 112/56 L 94 03/18/24 06:20 74 17 94 01/18/24 06:10 67 26 H 91 01/18/24 06:00 74 23 129/53 L 91 01/18/24 06:00 74 23 91 01/18/24 05:56 75 23 136/47 L 90 01/18/24 05:56 75 23 90 01/18/24 05:50 72 24 92 01/18/24 05:40 70 17 92 01/18/24 05:40 70 17 121/49 L 92 01/18/24 05:30 78 19 94 01/18/24 05:24 68 13 91 01/18/24 05:22 67 01/18/24 05:22 37.8 C H 89 13 91 Room Air Laboratory Results Abnormal lab results 01/18/24 01/18/24 01/18/24 Range/Units 05:15 06:18 12:49 RBC 4.12 L (4.70-6.10) M/uL Hgb 12.3 L (14.0-18.0) g/dl Hct 36.7 L (42.0-52.0) % Plt Count 108 L (130-400) K/uL Lymph # (Auto) 0.60 L (1.20-3.40) K/uL BUN 29 H (6-23) mg/dl Creatinine 1.78 H (0.6-1.4) mg/dl Glucose 130 H (70-99(Fasting)) mg/dl POC Glucose 168 H (70-99) mg/dl Calcium 8.5 L (8.6-10.3) mg/dl Magnesium 1.4 L (1.7-2.4) mg/dl Total Bilirubin 1.1 H (0.2-1.0) mg/dl B-Natriuretic Peptide 303 H (0-100) pg/ml Diagnostic Findings Chest X-Ray 01/18/24 05:22 SINGLE VIEW CHEST CLINICAL HISTORY: Sepsis FINDINGS: An AP, portable, upright chest radiograph is compared to study dated 02/17/2019. The patient is status post midline sternotomy. A 2-lead cardiac pacemaker is unchanged in position. The heart is enlarged noting atherosclerotic calcification of the thoracic aorta. The pulmonary vasculature is noncongested. Airspace consolidation is seen in the left mid to lower lung. There is bibasilar atelectasis. No large pleural effusion or pneumothorax is seen. The fractures are osteopenic. The bony thorax is grossly intact. Arthritic change is noted in the shoulders. IMPRESSION: 1. Cardiomegaly and cardiac pacemaker without radiographic evidence of congestive failure. 2. Airspace consolidation is seen in the left mid to lower lung. Correlate clinically for evidence of pneumonia/aspiration pneumonitis. Radiographic follow-up to resolution is recommended. ACT 112: Negative or not required by law. Electronically signed by: Jose Lyles M.D. 01/18/2024 7:25 AM PG Care Time/CCT Total # of Minutes Spent Total Time Spent with Patient: Total time spent is greater than 50% in coordination of care (as documented) at patient's floor/unit and/or counseling patient: Coding Level of Care Code 69695 INT INP/OBS CARE 255MIN Diagnoses Community acquired pneumonia J18.9 Heart failure with mid-range ejection fraction I50.22 Type 2 diabetes mellitus with obesity E11.69; E66.9 Stage 3b chronic kidney disease (CKD) N18.32 Obstructive sleep apnea G47.33 Chronic systolic CHF (congestive heart failure) I50.22 Cardiomyopathy I42.9 Dyslipidemia E78.5 NSVT (nonsustained ventricular tachycardia) I47.2 Coronary artery disease involving coronary bypass graft of [place] heart without angina pectoris I25.810 Coronary Disease-Associated Artery/Lesion type: bypass graft [place] vs. transplanted heart: [place] heart Associated angina: without angina Paroxysmal atrial fibrillation I48.0 Atrial fibrillation type: paroxysmal Hypomagnesemia E83.42 (10) CAD (coronary artery disease) Coronary Disease-Associated Artery/Lesion type: bypass graft [place] vs. transplanted heart: [place] heart Associated angina: without angina Qualified Code(s): I25.810 - Atherosclerosis of coronary artery bypass graft(s) without angina pectoris (11) Atrial fibrillation Atrial fibrillation type: paroxysmal Qualified Code(s): I48.0 - Paroxysmal atrial fibrillation
[2024-01-18] MEDS: LANTUS PER UNIT CHARGE SQ SCH (12:17)
[2024-01-18] MEDS: INSULIN ASPART PER UNIT CHARGE SC SCH (13:06)
[2024-01-18] MEDS: carvediloL 12.5 MG TAB PO SCH (20:11)
[2024-01-18] MEDS: APIXABAN 2.5 MG TAB PO SCH (20:11)
[2024-01-18] MEDS: ALBUT/IPRATROP 3MG/0.5MG NEB 3 ML VIAL NEB SCH (20:17)
[2024-01-19 03:01] LABS: Appearance Urine Clear (Clear); Bacteria Urine Automated Negative (Negative); Bilirubin Urine Negative (Negative); Blood Urine 1+ (Negative); Color Urine Yellow; Epithelial Cell Urine Auto 20-30 /lpf (0-5); Glucose Urine UA Negative (Negative); Ketones Urine Negative (Negative); Leukocyte Esterase Urine 1+ (Negative); Nitrite Urine Negative (Negative); Protein Urine Negative (Negative); RBC Urine Automated 0-4 /hpf (0-4); Specific Gravity Urine 1.011 (1.000-1.030); Urobilinogen Urine Negative (Negative)
[2024-01-19 06:38] LABS: BUN Creatinine Ratio 15.9 (10-20); Calcium 7.9 mg/dl (8.6-10.3); Creatinine Clr Calc Pharmacy 29.3 ml/min; Est GFR (African American) 29.1 ml/min; Est GFR (Non-African American) 25.1 ml/min; Magnesium 2.3 mg/dl (1.7-2.4); Potassium 3.8 mmol/L (3.5-5.1)
[2024-01-19 06:54] LABS: Hematocrit (blood only) 29.6 % (42.0-52.0); Hemoglobin 9.9 g/dl (14.0-18.0); Mean Corpuscular Hemoglobin 30.1 pg (25.0-34.0); Mean Corpuscular Hgb Conc 33.4 g/dL (32.0-36.0); Mean Platelet Volume 10.8 fL (9.4-12.4); Platelet Count 87 K/uL (130-400); Platelet Estimate Decreased (Normal); RDW Coefficient of Variation 14.4 % (11.5-14.5); RDW Standard Deviation 47.2 fL (36.4-46.3); Red Blood Count 3.29 M/uL (4.70-6.10); White Blood Count 8.83 K/ul (4.8-10.8)
[2024-01-19] MEDS: ROSUVASTATIN CALCIUM 20 MG TAB PO SCH (08:36)
[2024-01-19] MEDS: LOSARTAN POTASSIUM 50 MG TAB PO SCH (08:37)
--- NOTE | 2024-01-19 16:02 | Hospitalist Progress Note ---
Date of Service January 19, 2024 Assessment & Plan (1) Community acquired pneumonia: Plan: Patient presented with productive cough and fever Chest x-ray showed left-sided pneumonia No orthopnea, PND, worsened leg swelling compared to baseline to suggest CHF exacerbation Got IV Levaquin in the emergency room. Will continue as he is starting to feel better in response Ordered sputum cultures Blood cultures pending Not hypoxic Not septic Ordered DuoNebs Monitor for improvement clinically ON 01/18, patient appears to be improving. Remains aferbile, on room air. PT/OT eval recommended he can go home. WIll discharge in AM. (2) Heart failure with mid-range ejection fraction: Plan: Patient does not have any orthopnea or PND or leg swelling that is worse than usual even though BNP is slightly elevated in the 300s range Patient has a history of cardiomyopathy and systolic CHF with an EF of 40% Continue Lasix 40 mg daily starting tomorrow 01/18 Continue Coreg, losartan Home medications will need to be verified and doses of medications may need to be adjusted accordingly (3) Type 2 diabetes mellitus with obesity: Plan: Continue long-acting insulin 15 units twice daily Ordered sliding scale insulin (4) Stage 3b chronic kidney disease (CKD): Plan: acute kidney injury -Will give IVf losartan already given this AM. will hold for 01/19 Monitor daily BMP Avoid nephrotoxic medication Creatinine at baseline (5) Obstructive sleep apnea: Plan: Ordered CPAP (6) Chronic systolic CHF (congestive heart failure): Plan: No acute decompensation at this time clinically Got IV fluid in the emergency room Will not hydrate further and watch for volume overload Will resume Lasix 40 mg starting tomorrow. Continue Coreg, losartan, Lasix. Medications and the doses will need to be verified (7) Cardiomyopathy: Plan: Please see problem #6 (8) Dyslipidemia: Plan: Continue rosuvastatin (9) NSVT (nonsustained ventricular tachycardia): Plan: Continue Coreg (10) CAD (coronary artery disease): Plan: Continue Coreg, ARB, statin (11) Atrial fibrillation: Plan: Not an active issue at this time Continue Eliquis and Coreg (12) Hypomagnesemia: Plan: Magnesium level was low at 1.5 Patient had 1 g of magnesium replacement in the emergency room. Ordered a few more replacements Trend Plan CODE STATUS: DNR/DNI DVT prophylaxis: On Eliquis Admission and Anticipated Discharge Date Admission Date: January 18, 2024 Subjective Patient reports no new symptoms. Review of Systems Review of Systems: All systems reviewed & are unremarkable except as noted in HPI & below Physical Exam Physical Exam: General appearance: able to answer questions appropriately. AOx3. Respiration: clear. Normal effort Cardiovascular: S1-S2/regular rate and rhythm. No murmur, rubs or gallop. No edema. Abdomen: Soft, nontender, nondistended. No hepatosplenomegaly Musculoskeletal: No clubbing, no cyanosis, normal range of motion Skin: No rashes, no nodules Neuro exam: Cranial nerves intact, sensation grossly intact Results & Data Results & Data Vital Signs (Past 12 Hours) Vital Signs Temp Pulse Resp BP Pulse Ox O2 Del Method O2 Flow Rate 01/19/24 15:37 64 18 96 Room Air 01/19/24 11:13 36.6 C 67 18 106/68 96 Room Air 01/19/24 11:06 64 18 95 Room Air 01/19/24 08:00 Room Air 01/19/24 07:48 36.4 C L 60 20 100/65 100 Nebulizer 01/19/24 07:20 60 18 94 Nasal Cannula 2 PG Care Time/CCT Total # of Minutes Spent Total Time Spent with Patient: Total time spent is greater than 50% in coordination of care (as documented) at patient's floor/unit and/or counseling patient: Coding Level of Care Code 61490 SUB INP/OBS CARE 2/35MIN Diagnoses Community acquired pneumonia J18.9 Heart failure with mid-range ejection fraction I50.22 Type 2 diabetes mellitus with obesity E11.69; E66.9 Stage 3b chronic kidney disease (CKD) N18.32 Obstructive sleep apnea G47.33 Chronic systolic CHF (congestive heart failure) I50.22 Cardiomyopathy I42.9 Dyslipidemia E78.5 NSVT (nonsustained ventricular tachycardia) I47.2 Coronary artery disease involving coronary bypass graft of [place] heart without angina pectoris I25.810 Coronary Disease-Associated Artery/Lesion type: bypass graft [place] vs. transplanted heart: [place] heart Associated angina: without angina Paroxysmal atrial fibrillation I48.0 Atrial fibrillation type: paroxysmal Hypomagnesemia E83.42 (10) CAD (coronary artery disease) Coronary Disease-Associated Artery/Lesion type: bypass graft [place] vs. transplanted heart: [place] heart Associated angina: without angina Qualified Code(s): I25.810 - Atherosclerosis of coronary artery bypass graft(s) without angina pectoris (11) Atrial fibrillation Atrial fibrillation type: paroxysmal Qualified Code(s): I48.0 - Paroxysmal atrial fibrillation
[2024-01-19] MEDS: LACTATED RINGER'S 1,000 ML IV SCH (17:31)
[2024-01-20 06:42] LABS: Hematocrit (blood only) 31.1 % (42.0-52.0); Hemoglobin 10.7 g/dl (14.0-18.0); Mean Corpuscular Hemoglobin 30.4 pg (25.0-34.0); Mean Corpuscular Hgb Conc 34.4 g/dL (32.0-36.0); Mean Corpuscular Volume 88.4 fL (80.0-100.0); Mean Platelet Volume 11.2 fL (9.4-12.4); Platelet Count 112 K/uL (130-400); RDW Coefficient of Variation 14.3 % (11.5-14.5); RDW Standard Deviation 46.1 fL (36.4-46.3); Red Blood Count 3.52 M/uL (4.70-6.10); White Blood Count 7.69 K/ul (4.8-10.8)
[2024-01-20 07:07] LABS: BUN Creatinine Ratio 18.1 (10-20); C Reactive Protein 14.45 mg/dl (0-0.5); Calcium 8.5 mg/dl (8.6-10.3); Creatinine Clr Calc Pharmacy 32.5 ml/min; Est GFR (Non-African American) 28.5 ml/min; Magnesium 2.2 mg/dl (1.7-2.4); Potassium 4.3 mmol/L (3.5-5.1)
[2024-01-20] MEDS: levoFLOXacin/D5W 750 MG/150 ML BAG IV SCH (07:55)
--- NOTE | 2024-01-20 09:47 | XRay Report ---
XR chest 2V PA/lateral HISTORY: Follow-up pneumonia COMPARISON: Chest 01/18/2024. FINDINGS: No pneumothorax. The heart is mildly enlarged. There is mild central pulmonary vascular con gestion without overt edema. Patchy left left lung airspace opacities have improved. No new focal igor g consolidations. There is a left-sided pacemaker and poststernotomy changes again noted. No acute fr actures. Trace bilateral pleural effusions. IMPRESSION: 1. The patchy left lung airspace opacities have improved. 2. Cardiomegaly with mild pulmonary vascular congestion and trace bilateral pleural effusions. ACT 112: Negative or not required by law. Electronically signed by: Malachi Myrick M.D. 01/20/2024 9:46 AM
--- NOTE | 2024-01-20 14:34 | Discharge Summary ---
Date of Service January 20, 2024 Admission HPI Per Admitting Provider This is an 83-year-old gentleman who presented to the hospital with the above chief complaint. He stated that his symptoms started 2 weeks ago, got better initially but over the last 5 days, his cough got worse. He has been coughing so much that his belly hurts. Last night, he was not able to sleep at all. This morning he felt unwell and weak. He has been coughing up yellow and white sputum. His brother called 911 and brought him to the emergency room. In the ER, he was noted to have a fever. Chest x-ray showed a left-sided pneumonia. He is thus being admitted with a diagnosis of pneumonia. Magnesium was low at 1.4. Bio fire was negative. He was started on Levaquin and was given IV fluid in the emergency room. The patient says that he is starting to feel better overall. Patient denied any orthopnea, PND, leg swelling that is worse than usual. Past medical history 1. 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 Chronic systolic congestive heart failure with an ejection fraction of 40% 3. 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 Paroxysmal atrial fibrillation, on Eliquis 5. Coronary artery disease status post CABG 6. Benign essential hypertension 7. Hyperlipidemia 8. Paroxysmal nonsustained V. tach 9. 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 Insulin-dependent diabetes mellitus type 2, uncontrolled, complicated by diabetic nephropathy 11. Obstructive sleep apnea Discharge Data Allergies Allergy/AdvReac Type Severity Reaction Status Date / Time Penicillins Allergy Intermediate HIVES Verified 12/23/23 08:43 Consultations 01/18/24 07:53 ED Decision to Admit Stat Hospital Course (1) Community acquired pneumonia: Patient presented with productive cough and fever Chest x-ray showed left-sided pneumonia No orthopnea, PND, worsened leg swelling compared to baseline to suggest CHF exacerbation Got IV Levaquin in the emergency room. Will continue as he is starting to feel better in response Ordered sputum cultures Blood cultures pending Not hypoxic Not septic Ordered DuoNe Monitor for improvement clinically ON 01/18, patient appears to be improving. Remains aferbile, on room air. PT/OT eval recommended he can go home. WIll discharge in AM. (2) Heart failure with mid-range ejection fraction: Patient does not have any orthopnea or PND or leg swelling that is worse than usual even though BNP is slightly elevated in the 300s range Patient has a history of cardiomyopathy and systolic CHF with an EF of 40% Continue Lasix 40 mg daily starting tomorrow 01/18 Continue Coreg, losartan Home medications will need to be verified and doses of medications may need to be adjusted accordingly (3) Type 2 diabetes mellitus with obesity: Continue long-acting insulin 15 units twice daily Ordered sliding scale insulin (4) Stage 3b chronic kidney disease (CKD): acute kidney injury -Will give IVf losartan already given this AM. will hold for 01/19 Monitor daily BMP Avoid nephrotoxic medication Creatinine at baseline (5) Obstructive sleep apnea: Ordered CPAP (6) Chronic systolic CHF (congestive heart failure): No acute decompensation at this time clinically Got IV fluid in the emergency room Will not hydrate further and watch for volume overload Will resume Lasix 40 mg starting tomorrow. Continue Coreg, losartan, Lasix. Medications and the doses will need to be verified (7) Cardiomyopathy: Please see problem #6 (8) Dyslipidemia: Continue rosuvastatin (9) NSVT (nonsustained ventricular tachycardia): Continue Coreg (10) CAD (coronary artery disease): Continue Coreg, ARB, statin (11) Atrial fibrillation: Not an active issue at this time Continue Eliquis and Coreg (12) Hypomagnesemia: Magnesium level was low at 1.5 Patient had 1 g of magnesium replacement in the emergency room. Ordered a few more replacements Trend Plan CODE STATUS: DNR/DNI DVT prophylaxis: On Eliquis Discharge Plan Discharge Items Patient Disposition: Home - Self-Care Reason For Visit: PNEUMONIA Discharge Diagnosis: pneumonia Activity: Resume your previous activity Non-emergency contact: Primary Care Provider Call non-emergency contact if: you have any medication questions Follow-up/Referrals: Suzi Aragon MD [Primary Care Provider] - Diet: Carb Consistent or DM2 and Heart Healthy Addtl Attending Provider Instructions: recommend followup with PCP in 1-2 weeks. Take levofloxacin on 01/21 and 01/23 Pending Studies at Discharge: No Stand-Alone Forms: [employer], Smoking Cessation Medications and DC Order Prescriptions: New levofloxacin 750 mg tablet 750 mg PO Q48H Qty: 2 0RF Rx Instructions: next dose is on 01/21, and then 01/23 Continued Eliquis 2.5 mg tablet 2.5 mg PO BID Qty: 180 3RF furosemide 40 mg tablet 40 mg PO QAM Qty: 90 3RF Rx Instructions: Take 40mg daily. If increased leg swelling or weight gain, can take 2nd 40mg pill. metformin 500 mg tablet 500 mg PO BID Qty: 180 3RF insulin glargine [Lantus Solostar U-100 Insulin] 100 unit/mL (3 mL) insulin pen 10 - 15 unit subcut BID Qty: 15 3RF dulaglutide 1.5 mg/0.5 mL pen injector 1.5 mg subcut WK Qty: 6 3RF carvedilol 25 mg tablet See Rx Instructions .ROUTE .COMPLEX Qty: 180 3RF Dose Instruction: TAKE 1 TABLET TWICE DAILY Rx Instructions: TAKE 1 TABLET TWICE DAILY rosuvastatin 20 mg tablet See Rx Instructions .ROUTE .COMPLEX Qty: 90 3RF Dose Instruction: TAKE 1 TABLET EVERY DAY Rx Instructions: TAKE 1 TABLET EVERY DAY cholecalciferol (vitamin D3) 5,000 unit capsule 5,000 units PO DAILY magnesium oxide 400 mg magnesium capsule 400 mg PO DAILY Qty: 30 multivitamin 1 tab PO DAILY vitamins A,C,E-zgru-ixvyvr See Rx Instructions .ROUTE .COMPLEX Rx Instructions: as directed mecobalamin (vitamin B12) 1,000 mcg tablet,disintegrating 1,000 mcg sublingual DAILY Rx Instructions: place tablet under tongue and allow to dissolve for at least30 secs before swallowing Galzin 50 mg (zinc) capsule 50 mg PO DAILY Changed losartan 100 mg tablet 50 mg PO DAILY Qty: 90 3RF Discharge Orders: Discharge Order (Routine); Ordered 01/20/24 Ordered By: Luis Manuel Hamilton Admission Data Admit Date/Time: 01/18/24 08:15 Attending Provider: Luis Manuel Hamilton Admit Provider: Berto Barraza Primary Care Provider: Suzi Aragon Other Providers: Nicolas Steward Coding Diagnoses Community acquired pneumonia J18.9 Heart failure with mid-range ejection fraction I50.22 Type 2 diabetes mellitus with obesity E11.69; E66.9 Stage 3b chronic kidney disease (CKD) N18.32 Obstructive sleep apnea G47.33 Chronic systolic CHF (congestive heart failure) I50.22 Cardiomyopathy I42.9 Dyslipidemia E78.5 NSVT (nonsustained ventricular tachycardia) I47.2 Coronary artery disease involving coronary bypass graft of [place] heart without angina pectoris I25.810 Coronary Disease-Associated Artery/Lesion type: bypass graft [place] vs. transplanted heart: [place] heart Associated angina: without angina Paroxysmal atrial fibrillation I48.0 Atrial fibrillation type: paroxysmal Hypomagnesemia E83.42
== END 2024-01-20 15:06 | disposition home or self-care (01) | DRG 194 ==
LOC: ED 05:10 → SUATTDRO 08:15 → EDINP 08:15 → 2N 16:12